=== PATIENT | female | born 1965 | race Caucasian/White ===

== ENCOUNTER → 2018-12-21 07:31 | Day surgery (SDC) | payer BC ==
[~2018-12-21 07:31] MED LIST: Acetaminophen TAB* 325 MG ONE; Acetaminophen TAB* 325 MG PO PRN; Buffered Lidocaine 1% SYRIN* 1 ML/SYRINGE INTRADERM ONE; Dexamethasone IV* 4 MG/ML 1 ML (4 MG) IV SLOW PU ONE; Dexamethasone IV* 4 MG/ML 1 ML (4 MG) ONE; DiMENhydriNATE IV* 50 MG/ML VIAL IV PUSH PRN; Famotidine IV* 10 MG/ML 2 ML (20 mg) IV ONE; Famotidine IV* 10 MG/ML 2 ML (20 mg) ONE; HYDROcodone/ACETAMIN 5-325 MG* 1 TAB PO PRN; Ketorolac INJ* 30 MG/ML 1 ML VIAL ONE; Lactated Ringers 1000 ML Bag* 1,000 ML IV SCH; Lidocaine 2% PF * 5 ML VIAL ONE; Midazolam* 1 MG/ML 5 ML VIAL (5 MG) ONE; Naloxone* 0.4 MG/ML 1 ML VIAL IV PRN; Ondansetron INJ* 2 MG/ML VIAL ONE; PROCHLORPERAZINE INJ 5 MG/ML 2 ML VIAL IV PRN; Propofol* 10 MG/ML 20 ML BTL ONE; fentaNYL* 50 MCG/ML 2 ML VIAL (100 MCG VIAL) IV PRN; fentaNYL* 50 MCG/ML 2 ML VIAL (100 MCG VIAL) ONE; oxyCODONE/Acetamin 5/325 MG* TAB PO PRN
--- NOTE | 2018-12-21 13:28 | OP ---
CC: Dr. Yarbrough at [facility] OPERATIVE REPORT: DATE OF OPERATION: 12/21/18 DATE OF : 69 SURGEON: Lucretia Yarbrough MD ANESTHESIOLOGIST: Dr. Wu. ANESTHESIA: General endotracheal anesthesia. PRE-OP DIAGNOSES: 1. Irregular vaginal bleeding. 2. Endometrial polyp on office biopsy. POST-OP DIAGNOSES: 1. Irregular vaginal bleeding. 2. Endometrial polyp on office biopsy. OPERATIVE PROCEDURE: Dilation, hysteroscopy, MyoSure myomectomy of a submucous fibroid, and curettag e. ESTIMATED BLOOD LOSS: Minimal, less than 50 cc. FLUIDS: Per Anesthesia. The MyoSure deficit was 750 cc. DRAINS: None. FINDINGS: Midline cervix, irregularly shaped uterus. It is a known fibroid uterus. The uterus soun ds to 9.5. There is what appears to be a submucous myoma protruding from the posterior uterine wall, appeared to be approximately 3 cm in size. No adnexal masses were palpated, but the exam was limite d by habitus. Both tubal ostia were visualized. COMPLICATIONS: None. COUNTS: Sponge count was correct x2. CONDITION: The patient tolerated the procedure well and was brought to the recovery room awake and i n stable condition. DESCRIPTION OF PROCEDURE: The patient was brought to the operating room. When general anesthesia wa s found to be adequate, the patient was prepped and draped in the usual sterile fashion in the dorsal lithotomy position. Exam under anesthesia was performed with the above findings noted after the arnaud e-out was performed. Weighted speculum was placed in the vagina. The anterior lip of the cervix was grasped with a single-tooth tenaculum and the cervix was gently and easily dilated with the graduated Gar dilators. The MyoSure was introduced and the endometrium appeared atrophic; however, there ap peared to be a submucous fibroid protruding from the posterior uterine wall. It appeared to be appro ximately 3 cm. The MyoSure was introduced and the fibroid was removed using the MyoSure. The MyoSur e was removed. Curettage was then performed. Endometrial curettings were sent to Pathology. The si ngle-tooth tenaculum was removed from the anterior lip of the cervix and excellent hemostasis was obs erved. All instruments were removed from the vagina. The patient tolerated the procedure well and t he patient was brought to recovery room awake and in stable condition. [id number]/[facility] #: [id number]
[2018-12-21 14:21] VITALS: BP 143/72
== END | disposition home or self-care (01) ==
LOC: OR 07:31
PROVIDERS: ATTEND Obstetrics & Gynecology
DX: N93.8 Other specified abnormal uterine and vaginal bleeding (principal); D25.0 Submucous leiomyoma of uterus; I10 Essential (primary) hypertension; J45.909 Unspecified asthma, uncomplicated; E11.9 Type 2 diabetes mellitus without complications; Z79.84 Long term (current) use of oral hypoglycemic drugs
CPT/HCPCS: 36415; 86850; 86900; 86901; 88305; A9270-GY; J1100; J1885; J2250; J2405; J2704; J3010